=== PATIENT | female | born 1975 | race Caucasian/White ===

== ENCOUNTER 2019-09-05 21:52 | Emergency (ER) | payer OTHER ==
[~2019-09-05] VITALS: Ht 157.5 cm; Wt 66.2 kg
[2019-09-05 22:00] VITALS: BP_SYST 111
--- NOTE | 2019-09-05 22:00 | NUR ---
Patient triaged and placed in waiting room. VSS and patient appears in no acute distress at this time. Accompanied by fam member, awaiting available bed, and MD notified of need for MSE.
--- NOTE | 2019-09-06 01:09 | NUR ---
Patient to ER chair to gown for evaluation. Side rails up. Report given to Judi JIM.
--- NOTE | 2019-09-06 01:12 | NUR ---
Patient brought in with complaining of right arm pain radiating to thumb worsening x 1 week after carrying a 20 pound meat tray at work. Pain 8/10. No other complaints/injuries per patient or as noted. Will continue to monitor.
--- NOTE | 2019-09-06 01:19 | NUR ---
ER at bedside examining patient.
[2019-09-06] MEDS ORDERED: KETOROLAC TROMETHAMINE 60 MG/2 ML VIAL IM ONE (01:30)
--- NOTE | 2019-09-06 01:52 | NUR ---
patient placed in thumb spica to right thumb. PAtient tolerated well.
[2019-09-06 01:57] VITALS: BP_SYST 118
--- NOTE | 2019-09-06 01:57 | NUR ---
Patient given written and verbal discharge instructions and verbalizes understanding. ER MD discussed with patient the results and treatment provided. Patient in stable condition. ID arm band removed. Rx of ibuprofen given. Patient educated on pain management and to follow up with PMD. Pain Scale 0/10 Opportunity for questions provided and answered. Medication side effect fact sheet provided.
== END 2019-09-06 01:57 | disposition home or self-care (01) ==
LOC: SED 21:52
DX: M65.4 Radial styloid tenosynovitis [de Quervain] (principal)
CPT/HCPCS: 29125; 73110; 96372; 99283; J1885